=== PATIENT | male | born 1980 | race Caucasian/White ===

== ENCOUNTER 2020-11-09 21:09 | Emergency (ER) | payer BC ==
[2020-11-09] MEDS ORDERED: HYDROmorphone 1 MG/ML Syringe IVPUSH ONE ×2 (21:43→22:19)
[2020-11-09] MEDS ORDERED: Ondansetron 4 MG/2 ML SDV IVPUSH ONE (21:43)
[2020-11-09] MEDS ORDERED: Sodium Chloride 0.9% 1,000 ML IV ONE (21:44)
--- NOTE | 2020-11-09 21:45 | EDM.PDOC ---
ED HPI GENERAL MEDICAL PROBLEM - General Chief Complaint: Lower Extremity Injury/Pain Stated Complaint: BROKEN ANKLE VIA NORTH Time Seen by Provider: 11/09/20 21:43 Source of Information: Reports: Patient, EMS, Family History Limitations: Reports: No Limitations - History of Present Illness INITIAL COMMENTS - FREE TEXT/NARRATIVE: Patient presents emergency room today via EMS secondary to accident that occurred while playing baseball/softball this evening. Sliding injury in which his ankle rolled laterally with the feet foot going in the medial direction patient noted immediate pain and discomfort as well as inability to move foot and foot was located in right ankle direction to his lower extremity. This was called to the scene and patient was placed in a Jordan splint for support and transport to the ER PMH/Meds--denies NKDA Tob--denies EtOH--occassional Drugs--denies Onset: Sudden Right Ankle Pain Score (Numeric/FACES): 6 - Related Data Allergies Allergy/AdvReac Type Severity Reaction Status Date / Time No Known Allergies Allergy Verified 11/09/20 21:23 Home Meds: Home Meds NK [No Known Home Meds] 11/09/20 [History] Past Medical History - Past Health History Medical/Surgical History: Denies Medical/Surgical History Social & Family History - Tobacco Use Tobacco Use Status *Q: Never Tobacco User - Caffeine Use Caffeine Use: Reports: Coffee, Soda - Recreational Drug Use Recreational Drug Use: No Review of Systems - Review of Systems Review Of Systems: Comprehensive ROS is negative, except as noted in HPI. Constitutional: Reports: No Symptoms Eyes: Reports: No Symptoms Ears: Reports: No Symptoms Nose: Reports: No Symptoms Mouth/Throat: Reports: No Symptoms Respiratory: Reports: No Symptoms Cardiovascular: Reports: No Symptoms GI/Abdominal: Reports: No Symptoms Genitourinary: Reports: No Symptoms Musculoskeletal: Reports: Joint Pain (right ankle deformity) Skin: Reports: No Symptoms Neurological: Reports: No Symptoms Psychiatric: Reports: No Symptoms ED EXAM, GENERAL - Physical Exam Exam: See Below Exam Limited By: No Limitations General Appearance: Alert, WD/WN, Severe Distress Eye Exam: Bilateral Eye: Normal Inspection Ears: Normal External Exam Nose: Normal Inspection Throat/Mouth: Normal Voice, No Airway Compromise Head: Atraumatic, Normocephalic Neck: Normal Inspection, Supple, Non-Tender, Full Range of Motion Respiratory/Chest: No Respiratory Distress, Lungs Clear, Normal Breath Sounds Cardiovascular: Normal Peripheral Pulses, Regular Rate, Rhythm, No Edema, No Murmur Peripheral Pulses: 2+: Radial (L), Radial (R), Dorsalis Pedis (R) (shoe was cut/removed; R-DP 2+, good cap refill/distal NV intact) GI/Abdominal: Normal Bowel Sounds, Soft (Male) Exam: Deferred Rectal (Males) Exam: Deferred Extremities: Other (R-shoe was cut/removed as well as Jordan splint; R-DP 2+, good cap refill/distal NV intact) Neurological: Alert, Oriented, Normal Cognition, No Motor/Sensory Deficits Psychiatric: Normal Affect, Normal Mood Skin Exam: Warm, Dry, Intact, Normal Color Course - Vital Signs Text/Narrative:: 2219--Dr Benitez, Orthopedics was called, case was discussed and he will be in to see patient for reduction. Anesthesia was also called for conscious sedation. 2314--case was discussed with Dr Benitez, Ortho postreduction. He states patient is from [facility], can follow up there if desires. Ensure extremity elevated. verbalized agreement with my norco rx for pain. will also provide crutches for nonweight bearing until seen by Ortho in follow up Last Recorded V/S: Last Vital Signs Temp 97.9 F 11/09/20 21:28 Pulse 94 11/09/20 22:43 Resp 16 11/09/20 21:28 BP 136/76 11/09/20 22:43 Pulse Ox 90 L 11/09/20 22:43 - Orders/Labs/Meds Orders: Active Orders 24 hr Category Date Time Status Ankle 2V Rt [CR] Stat Exams 11/09/20 21:44 Taken Ankle 2V Rt [CR] Stat Exams 11/09/20 22:55 Taken Meds: Medications Discontinued Medications Generic Name Dose Route Start Last Admin Trade Name Vanessa PRN Reason Stop Dose Admin Hydromorphone HCl 1 mg 11/09/20 21:43 11/09/20 21:59 Hydromorphone 1 Mg/Ml Syringe IVPUSH 11/09/20 21:44 1 mg ONETIME ONE Administration Hydromorphone HCl 1 mg 11/09/20 22:19 11/09/20 22:27 Hydromorphone 1 Mg/Ml Syringe IVPUSH 11/09/20 22:20 1 mg ONETIME ONE Administration Sodium Chloride 1,000 mls @ 999 mls/hr 11/09/20 21:44 11/09/20 21:58 Normal Saline IV 11/09/20 22:44 999 mls/hr .BOLUS ONE Administration Ondansetron HCl 4 mg 11/09/20 21:43 11/09/20 22:08 Ondansetron 4 Mg/2 Ml Sdv IVPUSH 11/09/20 21:44 4 mg ONETIME ONE Administration Propofol Confirm 11/09/20 23:28 Propofol 200 Mg/20 Ml Sdv Administered 11/09/20 23:29 Dose 400 mg .[facility] Interpretation Free Text/Narrative:: 2215--bedside reading of film noted for medial rotation of foot/ankle dislocation with foot at right angle to lower leg at ankle. per discussion with Dr Benitez it is a subtalus dislocation Departure - Departure Time of Disposition: 23:38 Disposition: Home, Self-Care 01 Condition: Good Clinical Impression: Dislocation of foot, right, closed, Sports injury - Discharge Information *PRESCRIPTION DRUG MONITORING PROGRAM REVIEWED*: Yes (no prescriptions noted) *COPY OF PRESCRIPTION DRUG MONITORING REPORT IN PATIENT SREEDHAR: No Instructions: Crutch Use, Adult, [id number] Referrals: PCP,None [Primary Care Provider] - Forms: ED Department Discharge Additional Instructions: Keep foot elevated all times May use ice/cold therapy to ankle--foot--heel area Do not walk on or step on foot--use crutches all times (non-weight bearing to right foot) It is recommended you use a shower chair/bench to sit as you will slip if you attempt to stand on one leg; wrap/cover right foot/leg splint with trash bag to keep dry Follow up with Orthopedics in your local area of [facility]) in the next 2-3 days (before the weekend as you only have a limited supply of pain medications from the [facility]) Sepsis Event Note (ED) - Evaluation Sepsis Screening Result: No Definite Risk - Focused Exam Vital Signs: Vital Signs Temp Pulse Resp BP Pulse Ox 11/09/20 22:43 94 136/76 90 L 11/09/20 21:52 95 117/59 L 11/09/20 21:28 97.9 F 98 16 132/78 95 11/09/20 21:15 97.9 F 98 16 132/78 95 - My Orders Last 24 Hours: My Active Orders 11/09/20 21:44 Ankle 2V Rt [CR] Stat 11/09/20 22:55 Ankle 2V Rt [CR] Stat - Assessment/Plan Last 24 Hours: My Active Orders 11/09/20 21:44 Ankle 2V Rt [CR] Stat 11/09/20 22:55 Ankle 2V Rt [CR] Stat
[2020-11-09] MEDS ORDERED: Propofol 200 MG/20 ML SDV ONE (23:28)
--- NOTE | 2020-11-10 09:02 | CR ---
Ankle 2V Rt CLINICAL HISTORY: Dislocation FINDINGS: There is a medial dislocation in the hindfoot with medial subluxation of the calcaneus. There is a bony fragment adjacent to the navicular which may be off the anterior talus. IMPRESSION: Limited study Medial subluxation at the subtalar joint with the fracture fragment anteriorly likely from the talus
--- NOTE | 2020-11-10 09:04 | CR ---
Ankle 2V Rt CLINICAL HISTORY: Postreduction FINDINGS: The soft tissues are swollen. There is widening of the ankle mortise laterally. There is subluxation at the talonavicular joint. There is also asymmetry in the subtalar joint with asymmetric joint space widening. Previously described fracture fragment is not seen on this study due to superimposition. Impression: Partial reduction of subtalar subluxation Subluxation at the talonavicular joint and asymmetry of the ankle mortise
== END 2020-11-10 00:32 | disposition home or self-care (01) ==
LOC: JP.ED 21:09
DX: S93.304A Unspecified dislocation of right foot, initial encounter (principal); X50.1XXA Overexertion from prolonged static or awkward postures, initial encounter; Y93.64 Activity, baseball; Y92.320 Baseball field as the place of occurrence of the external cause
CPT/HCPCS: 28570; 73600; 96374; 96375; 99283; J1170; J2405; J2704; J7030